=== PATIENT | female | born 1955 | race Caucasian/White ===

== ENCOUNTER → 2018-09-28 | Outpatient (CLI) | payer BC ==
--- NOTE | 2018-09-28 12:15 | Diagnostic Imaging Report ---
Exam: Right shoulder series; 3 views dated 09/28/2018 at 10:39 AM History: Status post fall in the remote past with pain Comparison: None available Findings: Impaction deformity with a small avulsion fracture of the greater tuberosity is present. There is no evidence of a dislocation. Impression: Impaction deformity with small avulsion of the greater tuberosity. Signed by: Dr. Beau Sidhu DO on 09/28/2018 12:12 PM
== END ==
LOC: MAMMO 10:20
PROVIDERS: ATTEND Internal Medicine
DX: Z12.31 Encounter for screening mammogram for malignant neoplasm of breast (principal); M25.511 Pain in right shoulder
CPT/HCPCS: 77067

== ENCOUNTER → 2020-11-06 | Outpatient (CLI) | payer BC | LOC: MAMMO 09:24 | PROVIDERS: ATTEND Internal Medicine | DX: Z12.31 Encounter for screening mammogram for malignant neoplasm of breast (principal) | CPT/HCPCS: 77067 ==

== ENCOUNTER → 2022-03-06 | Outpatient (CLI) | payer BC | LOC: MAMMO 10:09 | PROVIDERS: ATTEND Internal Medicine | DX: Z12.31 Encounter for screening mammogram for malignant neoplasm of breast (principal) | CPT/HCPCS: 77067 ==

== ENCOUNTER → 2025-04-05 | Outpatient (REF) | payer MEDICARE | LOC: MAMMO 08:41 | PROVIDERS: ATTEND Internal Medicine | DX: Z12.31 Encounter for screening mammogram for malignant neoplasm of breast (principal) | CPT/HCPCS: 77067 ==

== ENCOUNTER → 2025-04-15 | Outpatient (REF) | payer MEDICARE | LOC: MAMMO 07:59 | PROVIDERS: ATTEND Internal Medicine | DX: N64.89 Other specified disorders of breast (principal) ==